=== PATIENT | male | born 1995 | race Caucasian/White ===

== ENCOUNTER 2019-01-18 21:13 | Emergency (ER) | payer OTHER ==
--- NOTE | 2019-01-18 21:42 | ER Document Report ---
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 He reports he has been to his [facility] and the clinic and they report there is nothing they could do. Patient reports he had a nosebleed prior to arrival held pressure. No active bleeding at this time. I have greeted and performed a rapid initial assessment of this patient. A comprehensive ED assessment and evaluation of the patient, analysis of test results and completion of the medical decision making process will be conducted by additional ED providers. Dictation of this chart was performed using voice recognition software; therefore, there may be some unintended grammatical errors.
--- NOTE | 2019-01-19 00:49 | ER Document Report ---
HPI - HPI Patient complains to provider of: Nosebleed Time Seen by Provider: 01/18/19 21:36 Onset: Yesterday Onset/Duration: Sudden Pain Level: Denies Context: Patient states that he has had numerous nosebleeds over the past 2 days with 6 yesterday and 10 today. Patient states that he will hold pressure and then the bleeding resumes after stopping. Patient denies any recent trauma although does report previous nasal fracture in the past. Patient denies any bleeding to the gingiva, in his stools, or any abnormal bruising Associated Symptoms: Other - Nosebleed. denies: Headache Exacerbated by: Denies Relieved by: Denies Similar symptoms previously: No Recently seen / treated by doctor: No - ROS ROS below otherwise negative: Yes Systems Reviewed and Negative: Yes All other systems reviewed and negative - EENT EENT: REPORTS: Congestion - NEURO Neurology: DENIES: Headache, Weakness, Dizzinesss / Vertigo - GASTROINTESTINAL Gastrointestinal: DENIES: Nausea, Patient vomiting - DERM Skin Color: Normal Skin Problems: None Past Medical History - General Information source: Patient - Social History Smoking Status: Never Smoker Frequency of alcohol use: None Drug Abuse: None Occupation: Active duty Lives with: Spouse/Significant other Family History: Reviewed & Not Pertinent Patient has suicidal ideation: No Patient has homicidal ideation: No - Medical History Medical History: Negative Surgical Hx: Negative Vertical Provider Document - CONSTITUTIONAL Agree With Documented VS: Yes Exam Limitations: No Limitations General Appearance: WD/WN, No Apparent Distress - INFECTION CONTROL TRAVEL OUTSIDE OF THE [place] IN LAST 30 DAYS: No - HEENT HEENT: Atraumatic, Normocephalic Notes: Dried blood in right nostril, no active bleeding, no blood noted in posterior pharynx - NECK Neck: Normal Inspection, Supple - RESPIRATORY Respiratory: Breath Sounds Normal, No Respiratory Distress - CARDIOVASCULAR Cardiovascular: Regular Rate, Regular Rhythm - MUSCULOSKELETAL/EXTREMETIES Musculoskeletal/Extremeties: MAEW - NEURO Level of Consciousness: Awake, Alert, Appropriate Motor/Sensory: No Motor Deficit - DERM Integumentary: Warm, Dry, No Rash - No abnormal ecchymosis Course - Re-evaluation Re-evalutation: 01/19/19 01:50 Patient without any active bleeding during ER stay. Patient encouraged to follow-up with primary doctor for referral to ENT. Discussed with patient importance of holding pressure and that if he has any persistent bleeding after 15 minutes that he should present to the emergency department for further evaluation. - Vital Signs Vital signs: Temp Pulse Resp BP Pulse Ox 97.4 F 80 16 143/79 H 99 01/18/19 21:38 01/18/19 21:38 01/18/19 21:38 01/18/19 21:38 01/18/19 21:38 - Laboratory Result Diagrams: 01/19/19 01:00 Discharge - Discharge Clinical Impression: Bleeding from the nose Condition: Stable Disposition: HOME, SELF-CARE Instructions: Nosebleed Instructions ([facility]) Additional Instructions: Return immediately for any new or worsening symptoms Followup with your primary care provider, call tomorrow to make a followup appointment Follow-up with learning disabilities teacher for further evaluation. If bleeding restarts, hold pressure to the nose for 15 minutes. If he still have bleeding after that presented to the emergency department for further evaluation. Referrals: [facility] [Provider Group] - Follow up as needed
[2019-01-19 01:10] LABS: ABSOLUTE BASOPHILS # (AUTO) 0.1 10^3/uL (0.0-0.2); ABSOLUTE EOSINOPHILS # (AUTO) 0.5 10^3/uL (0.0-0.6); ABSOLUTE LYMPHOCYTES (AUTO) 2.9 10^3/uL (0.5-4.7); ABSOLUTE MONOCYTES (AUTO) 0.6 10^3/uL (0.1-1.4); ABSOLUTE NEUT (AUTO) 2.9 10^3/uL (1.7-8.2); EOSINOPHILS % (AUTO) 7.7 % (0-6); HEMATOCRIT 41.3 % (37.9-51.0); HEMOGLOBIN 14.6 g/dL (13.5-17.0); LYMPHOCYTES % (AUTO) 41.5 % (13-45); MEAN CORPUSCULAR HEMOGLOBIN 30.7 pg (27.0-33.4); MEAN CORPUSCULAR HGB CONC 35.3 g/dL (32.0-36.0); MEAN CORPUSCULAR VOLUME 87 fl (80-97); MONOCYTES % (AUTO) 8.5 % (3-13); PLATELET COUNT 252 10^3/uL (150-450); RED BLOOD COUNT 4.75 10^6/uL (4.35-5.55); RED CELL DISTRIBUTION WIDTH 12.4 % (11.5-14.0); SEGMENTED NEUTROPHILS % (AUTO) 41.3 % (42-78); TOTAL CELLS COUNTED % (AUTO) 100 %
[2019-01-19 01:15] LABS: INTERNATIONAL RATION (INR) 1.04; PROTHROMBIN TIME 13.6 SEC (11.4-15.4)
[2019-01-19 01:16] LABS: PARTIAL THROMBOPLASTIN TIME 33.6 SEC (23.5-35.8)
[2019-01-19] MEDS ORDERED: OXYMETAZOLINE HCL 0.05% NASAL SPRAY 15 ML BOTTLE NASL ONE (01:49)
[2019-01-19 02:04] VITALS: BP 115/70
== END 2019-01-19 02:10 | disposition home or self-care (01) ==
LOC: ER 21:13
DX: R04.0 Epistaxis (principal)
CPT/HCPCS: 99283; 36415; 85025; 85610; 85730; J3490